=== PATIENT | male | born 1990 | race Caucasian/White ===

== ENCOUNTER 2022-05-03 14:50 | Emergency (ER) | payer SELFPAY ==
[~2022-05-03] VITALS: Ht 180.3 cm; Wt 72.5 kg
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
[2022-05-03 16:17] VITALS: BP 118/85
== END 2022-05-03 16:17 | disposition home or self-care (01) ==
LOC: ER 14:52
DX: S09.90XA Unspecified injury of head, initial encounter (principal); R40.2362 Coma scale, best motor response, obeys commands, at arrival to emergency department; R40.2142 Coma scale, eyes open, spontaneous, at arrival to emergency department; R40.2252 Coma scale, best verbal response, oriented, at arrival to emergency department; F17.210 Nicotine dependence, cigarettes, uncomplicated; W07.XXXA Fall from chair, initial encounter; W22.8XXA Striking against or struck by other objects, initial encounter
CPT/HCPCS: 70450; 72125